=== PATIENT | male | born 1990 | race Caucasian/White ===

== ENCOUNTER 2018-07-22 14:11 | Emergency (ER) | payer MEDICAID ==
[2018-07-22] MEDS ORDERED: NS 1,000 ML IV ONE (14:35)
[2018-07-22] MEDS ORDERED: GADOBUTROL 10 ML VIAL IVP ONE (14:41)
[2018-07-22 14:44] LABS: PLATELET COUNT 344 10^3/uL (150-400)
--- NOTE | 2018-07-22 14:57 | EDPHY ---
H & P Stated Complaint: headache x 3 weeks, spinal infection Time Seen by Provider: 07/22/18 14:21 HPI/ROS: CHIEF COMPLAINT: 3 week history of headache, chronic spinal infection, sent to ED by Infectious Disease specialist. HISTORY OF PRESENT ILLNESS: The patient presents to the ED at the request of Dr. Jasiel Agarwal from Infectious Disease for imaging of his brain and cervical spine. The patient has a history of chronic osteomyelitis involving the vertebral bodies. He is on chronic antibiotics as an outpatient. He is followed by multiple specialists including the [facility]. The patient reports he has developed a fairly significant headache over the past 3 weeks. The patient reportedly developed the headache after returning from [place]. He does live here at [place] chronically. The patient is scheduled to see his specialist at the [facility] in August. The patient does have a history of chronic pain. He is currently not using narcotics chronically. He is on gabapentin for muscle spasm. REVIEW OF SYSTEMS: A comprehensive 10 point review of systems is otherwise negative aside from elements mentioned in the history of present illness. Source: Patient Exam Limitations: No limitations - Personal History Tetanus Vaccine Date: WITHIN 10 YRS - Medical/Surgical History Hx Asthma: No Hx Chronic Respiratory Disease: No Hx Diabetes: No Hx Cardiac Disease: No Hx Renal Disease: No Hx Cirrhosis: No Hx Alcoholism: No Hx HIV/AIDS: No Hx Splenectomy or Spleen Trauma: No Other PMH: CHRONIC PAIN DUE TO TRAUMA, T3 OSTEOMYELITIS, MIKE, IHNG RECEPTOR 1 DEFICIENCY. MYCOBACTERIUM - Social History Smoking Status: Current every day smoker - Physical Exam Exam: General Appearance: Alert, no distress Eyes: Pupils equal and round no pallor or injection ENT, Mouth: Mucous membranes moist Respiratory: There are no retractions, lungs are clear to auscultation Cardiovascular: Regular rate and rhythm Gastrointestinal: Abdomen is soft and nontender, no masses, bowel sounds normal Neurological: A&O, normal motor function, normal sensory exam, normal cranial nerves Skin: Warm and dry, no rashes Musculoskeletal: Tenderness to palpation throughout the paracervical spinal musculature, no meningeal symptoms noted Extremities: symmetrical, full range of motion Psychiatric: Patient is oriented X 3, there is no agitation Constitutional: Initial Vital Signs Temperature (C) 36.7 C 07/22/18 14:13 Heart Rate 89 07/22/18 14:13 Respiratory Rate 16 07/22/18 14:13 Blood Pressure 128/70 H 07/22/18 14:13 O2 Sat (%) 95 07/22/18 14:13 O2 Delivery Mode Room Air Allergies/Adverse Reactions: ertapenem Allergy (Verified 07/22/18 14:12) levofloxacin [From Levaquin] Allergy (Verified 07/22/18 14:12) linezolid Allergy (Verified 07/22/18 14:12) Home Medications: Medication Instructions Recorded Azithromycin 1,000 11/15/14 Ethambutol HCl [Myambutol 400 MG 11/15/14 (*)] Rifampin 11/15/14 oxyCODONE CR [Oxycontin] 11/15/14 oxyCODONE IR [Oxycodone Ir (*)] 5 mg PO Q6 PRN #20 tab 07/22/18 Medical Decision Making - Diagnostics Imaging Results: Imaging Impressions Brain MRI 07/22/18 14:36 Impression: 1. Benign posterior nasopharyngeal Tornwaldt cyst. 2. No acute infarct, acute hemorrhage, hydrocephalus, or mass effect. 3. No enhancing lesions or meningitis. Findings and recommendations discussed with Emergency Department physician, Nikko Ontiveros M.D., at 1558 hours, on July 22, 2018. Final report concurs with initial preliminary interpretation. Cervical Spine MRI 07/22/18 14:36 Impression: 1. Osteomyelitis at T2, T3, and T4 with posterior paraspinal cellulitis and dorsal epidural phlegmon from T1-T2 through visualized upper thoracic spine T5. 2. No drainable abscess. 3. No cord compression or edema. 4. No cervical disk herniations, central canal stenosis, or neural foraminal stenosis. Findings and recommendations discussed with Emergency Department physician, Nikko Ontiveros, at 1600 hours, 07/22/2018. Final report concurs with initial preliminary interpretation. ED Course/Re-evaluation: I discussed the case with the patient's primary Infectious Disease specialist Dr. Agarwal who requested MRIs of the brain and cervical spine with and without contrast. The studies were obtained. The patient was given 4 mg of IV morphine. The studies demonstrate no evidence of meningitis, abscess or progressive osteomyelitis. The patient is nontoxic and well-appearing. Dr. Agarwal recommends the patient be discharged home with pain medications at this point time. The patient has been advised to return to the ED for high fever, numbness, weakness, markedly worsening symptoms or other concerns. I do believe the etiology of his pain is likely musculoskeletal in nature potentially with a component of a tension headache. Differential Diagnosis: Differential diagnosis considered includes cervical osteomyelitis, meningitis, tension headache, migraine headache, cervical strain - Data Points Laboratory Results: Laboratory Results 07/22/18 14:27 07/22/18 14:27 07/22/18 07/22/18 14:27 14:27 WBC 12.32 10^3/uL H 10^3/uL (3.80-9.50) RBC 4.71 10^6/uL 10^6/uL (4.40-6.38) Hgb 14.1 g/dL g/dL (13.7-17.5) Hct 40.4 % % (40.0-51.0) MCV 85.8 fL fL (81.5-99.8) MCH 29.9 pg pg (27.9-34.1) MCHC 34.9 g/dL g/dL (32.4-36.7) RDW 12.6 % % (11.5-15.2) Plt Count 344 10^3/uL 10^3/uL (150-400) MPV 8.6 fL L fL (8.7-11.7) Neut % (Auto) 69.2 % % (39.3-74.2) Lymph % (Auto) 18.6 % % (15.0-45.0) Parke % (Auto) 5.8 % % (4.5-13.0) Eos % (Auto) 5.8 % % (0.6-7.6) Baso % (Auto) 0.4 % % (0.3-1.7) Nucleat RBC Rel Count 0.0 % % (0.0-0.2) Absolute Neuts (auto) 8.53 10^3/uL H 10^3/uL (1.70-6.50) Absolute Lymphs (auto) 2.29 10^3/uL 10^3/uL (1.00-3.00) Absolute Monos (auto) 0.71 10^3/uL 10^3/uL (0.30-0.80) Absolute Eos (auto) 0.71 10^3/uL H 10^3/uL (0.03-0.40) Absolute Basos (auto) 0.05 10^3/uL 10^3/uL (0.02-0.10) Absolute Nucleated RBC 0.00 10^3/uL 10^3/uL (0-0.01) Immature Gran % 0.2 % % (0.0-1.1) Immature Gran # 0.03 10^3/uL 10^3/uL (0.00-0.10) Sodium 138 mEq/L mEq/L (135-145) Potassium 4.3 mEq/L mEq/L (3.5-5.2) Chloride 105 mEq/L mEq/L (97-110) Carbon Dioxide 26 mEq/l mEq/l (22-31) Anion Gap 7 mEq/L mEq/L (6-14) BUN 18 mg/dL mg/dL (7-23) Creatinine 1.0 mg/dL mg/dL (0.7-1.3) Estimated GFR > 60 Glucose 94 mg/dL mg/dL (70-100) Calcium 10.0 mg/dL mg/dL (8.5-10.4) Medications Given: Discontinued Medications Sodium Chloride (Ns) 1,000 mls @ 0 mls/hr IV ONCE ONE; Wide Open PRN Reason: Protocol Stop: 07/22/18 14:36 Last Admin: 07/22/18 15:50 Dose: 1,000 mls Morphine Sulfate (Morphine) 4 mg IVP EDNOW ONE Stop: 07/22/18 15:56 Last Admin: 07/22/18 16:03 Dose: 4 mg Departure - Departure Disposition: Home, Routine, Self-Care Clinical Impression: Tension headache Condition: Good Instructions: Acute Headache (ED) Additional Instructions: 1. Lidocaine patches as needed for cervical muscle discomfort. 2. Oxycodone as needed for headache. 3. Return to the ED for markedly worsening symptoms, high fever, numbness, weakness or other concerns. 4. Follow up with a [facility] and Dr. Agarwal as scheduled. Referrals: Jasiel Agarwal MD [Medical Doctor] - As per Instructions
[2018-07-22 17:03] VITALS: BP 119/67
== END 2018-07-22 17:03 | disposition home or self-care (01) ==
DX: G44.209 Tension-type headache, unspecified, not intractable (principal); E86.9 Volume depletion, unspecified; M46.24 Osteomyelitis of vertebra, thoracic region; F17.200 Nicotine dependence, unspecified, uncomplicated; Z79.2 Long term (current) use of antibiotics
CPT/HCPCS: 96374; A9585; J2270